=== PATIENT | male | born 1985 | race Caucasian/White ===

== ENCOUNTER 2017-12-03 13:40 | Emergency (ER) | payer SELFPAY ==
[~2017-12-03] VITALS: Ht 167.6 cm; Wt 61.0 kg
[2017-12-03] MEDS ORDERED: ONDANSETRON4 MG PO (14:25)
[2017-12-03] MEDS ORDERED: METRONIDAZOL500 MG PO (14:25)
[2017-12-03 14:47] VITALS: BP 130/80
[2017-12-03 14:47] LABS: URINE BILIRUBIN - DIPSTICK NEGATIVE (NEGATIVE); URINE BLOOD DIPSTICK MODERATE (NEGATIVE); URINE COLOR YELLOW; URINE GLUCOSE - DIPSTICK NEGATIVE (NEGATIVE); URINE KETONE NEGATIVE (NEGATIVE); URINE NITRITE - DIPSTICK NEGATIVE (Negative); URINE PH 5.5 (4.5-8.0); URINE PROTEIN - DIPSTICK 30 mg/dL (NEG-TRACE); URINE SPECIFIC GRAVITY >=1.030; URINE UROBILINOGEN - DIPSTICK 0.2 E.U./dL (0.2)
[2017-12-03 14:53] LABS: URINE CLARITY CLOUDY; URINE LEUK ESTERASE MODERATE (NEGATIVE)
[2017-12-03 14:57] LABS: URINE BACTERIA FEW hpf; URINE RBC TNTC RBC/hpf (0-5); URINE SQUAMOUS EPITHELIAL CELL FEW EPI/hpf (0-FEW); URINE WBC TNTC WBC/hpf (0-5)
== END 2017-12-03 14:54 | disposition home or self-care (01) | DRG 696 ==
LOC: ED 13:40
PROVIDERS: Family Medicine
DX: R30.0 Dysuria (principal); A54.9 Gonococcal infection, unspecified; R36.9 Urethral discharge, unspecified
CPT/HCPCS: J0561